=== PATIENT | male | born 1970 | race Caucasian/White ===

== ENCOUNTER 2023-11-21 14:38 | Emergency (ER) | payer OTHER ==
[~2023-11-21] VITALS: Ht 175.3 cm; Wt 71.2 kg
[2023-11-21 15:05] VITALS: BP 130/94; PULSE 107; RESP 16; TEMP 98.3; O2SAT 98
[2023-11-21 17:22] LABS: BASOPHILS % (AUTO) 0.5 % (0.0-2.0); EOSINOPHILS # (AUTO) 0.1 K/uL (0-0.4); EOSINOPHILS % (AUTO) 0.9 % (0.0-4.0); HEMATOCRIT 51.7 % (36-52); HEMOGLOBIN 17.7 g/dL (12.0-18.0); LYMPHOCYTES # (AUTO) 1.7 K/uL (2.0-11.5); MEAN CORPUSCULAR HEMOGLOBIN 31 pg (27-31); MEAN CORPUSCULAR HGB CONC 34 g/dL (33-37); MEAN CORPUSCULAR VOLUME 91.3 fL (80-94); MONOCYTES # (AUTO) 0.8 K/uL (0.8-1.0); MONOCYTES % (AUTO) 7.5 % (1.7-9.3); NEUTROPHILS # (AUTO) 7.8 K/uL (1.8-7.7); NEUTROPHILS % (AUTO) 75.1 % (42.2-75.2); PLATELET COUNT (AUTO) 316 K/uL (140-450); RED BLOOD CELL COUNT(AUTO) 5.67 MIL/uL (4.20-6.10); RED CELL DISTRIBUTION WIDTH 14.3 % (11.6-13.7); WHITE BLOOD COUNT (AUTO) 10.4 K/uL (4.8-10.8)
[2023-11-21 17:30] LABS: APPEARANCE,URINE CLEAR (CLEAR); BILIRUBIN,URINE 3+ (NEGATIVE); BLOOD, URINE NEGATIVE (NEGATIVE); COLOR,URINE ORANGE (YELLOW); LEUKOCYTE ESTERASE ,URINE TRACE (NEGATIVE); NITRITE, URINE POSITIVE (NEGATIVE); PROTEIN,URINE 2+ (NEGATIVE); UGLUCOSE TRACE (NEGATIVE)
[2023-11-21 17:33] LABS: ANION GAP 15.2 (8-16); CALCIUM 9.5 mg/dL (8.5-10.1); CREATININE 1.1 mg/dL (0.6-1.3); POTASSIUM 4.2 mmol/L (3.5-5.1)
[2023-11-21 17:47] LABS: ICTOTEST NEGATIVE (NEGATIVE)
[2023-11-21 17:48] LABS: ALBUMIN 4.7 g/dL (3.4-5.0); BACTERIA,URINE 10-30 (MOD) /HPF (None Seen); BILIRUBIN,DIRECT 0.3 mg/dL (0.0-0.3); RBC,URINE 0-5 /HPF (0-5); SQUAMOUS EPITHELIAL CELL,UR 0-3 (FEW) /LPF (0-3 (FEW)); THYROID STIMULATING HORMONE 0.73 uIU/mL (0.34-3.74); TOTAL BILIRUBIN 1.4 mg/dL (0.0-1.0); TOTAL PROTEIN, SERUM 8.6 g/dL (6.4-8.2); WBC,URINE 0-5 /HPF (0-5)
[2023-11-21 18:18] VITALS: O2SAT 97
[2023-11-21 18:19] VITALS: BP 114/88; PULSE 95; RESP 14; TEMP 98.3; O2SAT 97
[2023-11-21] MEDS ORDERED: CEFP200T20 PO (18:55)
[2023-11-21] MEDS ORDERED: ONDA-188 PO (18:55)
== END 2023-11-21 19:07 | disposition home or self-care (01) ==
LOC: MED 14:38
DX: N39.0 Urinary tract infection, site not specified (principal); I10 Essential (primary) hypertension; F41.9 Anxiety disorder, unspecified; K21.9 Gastro-esophageal reflux disease without esophagitis; E78.5 Hyperlipidemia, unspecified; Z79.1 Long term (current) use of non-steroidal anti-inflammatories (NSAID); Z79.899 Other long term (current) drug therapy
CPT/HCPCS: 36415; 71045; 80048; 80076; 81001; 83690; 84443; 85025; 99284

== ENCOUNTER 2023-11-29 00:20 | Inpatient (IN) | payer OTHER ==
[~2023-11-29] VITALS: Ht 172.7 cm; Wt 68.0 kg
[~2023-11-29 00:20] MED LIST: CEFP200T20 PO; ONDA-188 PO
[2023-11-29 00:24] VITALS: BP 146/100; PULSE 111; RESP 18; TEMP 102.1; O2SAT 97
[2023-11-29 00:31] VITALS: O2SAT 98
[2023-11-29] MEDS ORDERED: ONDANSETRON 4 MG/2 ML VIAL ONE (00:34)
[2023-11-29] MEDS ORDERED: ACETAMINOPHEN EXTRA STRENGTH 500 MG TAB ONE (00:34)
[2023-11-29] MEDS: ONDANSETRON 4 MG/2 ML VIAL IVP ONE (00:52)
[2023-11-29] MEDS: ACETAMINOPHEN EXTRA STRENGTH 500 MG TAB PO ONE (00:52)
[2023-11-29 00:59] LABS: BASOPHILS % (AUTO) 0.2 % (0.0-2.0); HEMATOCRIT 44.7 % (36-52); HEMOGLOBIN 15.5 g/dL (12.0-18.0); LYMPHOCYTES # (AUTO) 0.7 K/uL (2.0-11.5); LYMPHOCYTES % (AUTO) 4.1 % (20.5-51.1); MEAN CORPUSCULAR HEMOGLOBIN 32 pg (27-31); MEAN CORPUSCULAR HGB CONC 35 g/dL (33-37); MEAN CORPUSCULAR VOLUME 91.7 fL (80-94); MONOCYTES # (AUTO) 0.8 K/uL (0.8-1.0); MONOCYTES % (AUTO) 4.7 % (1.7-9.3); NEUTROPHILS # (AUTO) 16.4 K/uL (1.8-7.7); PLATELET COUNT (AUTO) 267 K/uL (140-450); RED BLOOD CELL COUNT(AUTO) 4.87 MIL/uL (4.20-6.10)
[2023-11-29] MEDS: NACL 0.9% 1,000 ML IV ONE ×2 (00:59→05:02)
[2023-11-29 01:21] LABS: ALBUMIN 4.4 g/dL (3.4-5.0); ANION GAP 15.3 (8-16); CALCIUM 8.3 mg/dL (8.5-10.1); CARBON DIOXIDE 24.2 mmol/L (21-32); CREATININE 1.3 mg/dL (0.6-1.3); POTASSIUM 3.5 mmol/L (3.5-5.1); TOTAL BILIRUBIN 0.8 mg/dL (0.0-1.0); TOTAL PROTEIN, SERUM 7.9 g/dL (6.4-8.2)
[2023-11-29 02:21] LABS: LACTIC ACID 1.1 mmol/L (0.4-2.0)
[2023-11-29 02:22] LABS: FLU A ANTIGEN negative (NEGATIVE); FLU B ANTIGEN NEGATIVE (NEGATIVE)
[2023-11-29 03:37] LABS: APPEARANCE,URINE CLEAR (CLEAR); COLOR,URINE YELLOW (YELLOW)
[2023-11-29 03:38] LABS: BLOOD, URINE NEGATIVE (NEGATIVE); PROTEIN,URINE TRACE (NEGATIVE); UGLUCOSE NEGATIVE (NEGATIVE)
[2023-11-29 03:39] LABS: BILIRUBIN,URINE NEGATIVE (NEGATIVE); LEUKOCYTE ESTERASE ,URINE NEGATIVE (NEGATIVE); NITRITE, URINE NEGATIVE (NEGATIVE); UROBILINOGEN,URINE 0.2 EU/dL (0.2 - 1)
[2023-11-29] MEDS ORDERED: CEFP200T20 PO (03:56)
[2023-11-29] MEDS ORDERED: SIMV-372 PO (03:56)
[2023-11-29] MEDS ORDERED: HYDR-1093 PO (03:56)
[2023-11-29] MEDS ORDERED: ONDA-188 SL (03:56)
[2023-11-29] MEDS ORDERED: OMEP20EC11 PO (03:56)
[2023-11-29] MEDS ORDERED: LOSA-272 PO (03:56)
[2023-11-29] MEDS: CIPROFLOXACIN 400 MG/200ML-D5W 200 ML IV ONE (04:04)
[2023-11-29] MEDS: MORPHINE SULFATE 4 MG/ML SYR IVP ONE (04:06)
[2023-11-29] MEDS: metroNIDAZOLE 500 MG/NS PREMIX 100 ML IV ONE (04:10)
[2023-11-29] MEDS: LORazepam 1 MG TAB PO ONE (05:30)
[2023-11-29 06:37] VITALS: O2SAT 96
[2023-11-29] MEDS ORDERED: ONDANSETRON 4 MG/2 ML VIAL IVP PRN (06:45)
[2023-11-29] MEDS ORDERED: POTASSIUM CHLORIDE 10 MEQ TABER PO PRN (06:45)
[2023-11-29] MEDS ORDERED: HYDROcodone/APAP 5/325 MG 1 TAB TAB PO PRN (06:45)
[2023-11-29] MEDS ORDERED: MAGNESIUM OXIDE 400 MG TAB PO PRN (06:45)
[2023-11-29] MEDS ORDERED: KCL 20 MEQ IN 100 mL PREMIX 200 ML IV PRN (06:45)
[2023-11-29] MEDS: NACL 0.9% 1,000 ML IV SCH (08:58)
[2023-11-29] MEDS: ENOXAPARIN 40 MG/0.4 ML SYR SUBQ SCH (09:23)
[2023-11-29] MEDS ORDERED: PIPERACILLIN/TAZOBACTAM 3.375 GM VIAL IV ONE ×2 (12:06→18:44)
[2023-11-29] MEDS: PIPERACILLIN/TAZOBACTAM 3.375 GM in DEXTROSE 5% 50 ML IV SCH (12:23)
[2023-11-29 16:07] VITALS: O2SAT 94
[2023-11-29] MEDS: ACETAMINOPHEN 325 MG TAB PO PRN (17:46)
[2023-11-29 21:32] VITALS: BP 125/84; PULSE 75; RESP 18; TEMP 97.3; O2SAT 99
[2023-11-29] MEDS: PIPERACILLIN/TAZOBACTAM 3.375 GM VIAL IV ONE (23:49)
[2023-11-30 04:00] VITALS: BP 113/64; PULSE 72; RESP 18; TEMP 97.4; O2SAT 98
[2023-11-30] MEDS: PIPERACILLIN/TAZOBACTAM 3.375 GM VIAL IV ONE (05:42)
[2023-11-30 06:58] LABS: BASOPHILS % (AUTO) 0.2 % (0.0-2.0); EOSINOPHILS # (AUTO) 0.2 K/uL (0-0.4); EOSINOPHILS % (AUTO) 1.4 % (0.0-4.0); HEMATOCRIT 38.7 % (36-52); HEMOGLOBIN 13.2 g/dL (12.0-18.0); LYMPHOCYTES # (AUTO) 1.4 K/uL (2.0-11.5); LYMPHOCYTES % (AUTO) 11.2 % (20.5-51.1); MEAN CORPUSCULAR HEMOGLOBIN 31 pg (27-31); MEAN CORPUSCULAR HGB CONC 34 g/dL (33-37); MEAN CORPUSCULAR VOLUME 91.1 fL (80-94); MONOCYTES # (AUTO) 1.1 K/uL (0.8-1.0); MONOCYTES % (AUTO) 8.5 % (1.7-9.3); NEUTROPHILS # (AUTO) 9.7 K/uL (1.8-7.7); NEUTROPHILS % (AUTO) 78.7 % (42.2-75.2); PLATELET COUNT (AUTO) 232 K/uL (140-450); RED BLOOD CELL COUNT(AUTO) 4.25 MIL/uL (4.20-6.10); RED CELL DISTRIBUTION WIDTH 13.9 % (11.6-13.7); WHITE BLOOD COUNT (AUTO) 12.4 K/uL (4.8-10.8)
[2023-11-30 07:15] LABS: ANION GAP 10.2 (8-16); CALCIUM 8.3 mg/dL (8.5-10.1); CARBON DIOXIDE 28.1 mmol/L (21-32); POTASSIUM 4.3 mmol/L (3.5-5.1)
[2023-11-30 08:00] VITALS: BP 152/82; PULSE 66; RESP 18; TEMP 97; O2SAT 98
[2023-11-30] MEDS: MEDS-TO-BEDS MC SCH (08:50)
[2023-11-30 12:00] VITALS: BP 152/82; PULSE 66; RESP 18; TEMP 97; O2SAT 98
[2023-11-30] MEDS: MORPHINE SULFATE 4 MG/ML SYR IVP PRN (13:34)
[2023-11-30 15:34] VITALS: O2SAT 97
[2023-11-30 16:00] VITALS: BP 147/83; PULSE 82; RESP 20; TEMP 97; O2SAT 97
[2023-11-30 20:00] VITALS: BP 104/69; PULSE 64; RESP 18; TEMP 98.3; O2SAT 96
[2023-12-01 04:00] VITALS: BP 134/79; PULSE 62; RESP 18; TEMP 97.8; O2SAT 96
[2023-12-01 07:04] LABS: ANION GAP 11.1 (8-16); BASOPHILS % (AUTO) 0.5 % (0.0-2.0); CALCIUM 7.9 mg/dL (8.5-10.1); CARBON DIOXIDE 29.4 mmol/L (21-32); CREATININE 0.9 mg/dL (0.6-1.3); EOSINOPHILS # (AUTO) 0.3 K/uL (0-0.4); HEMOGLOBIN 13.5 g/dL (12.0-18.0); LYMPHOCYTES # (AUTO) 1.7 K/uL (2.0-11.5); LYMPHOCYTES % (AUTO) 21.8 % (20.5-51.1); MEAN CORPUSCULAR HEMOGLOBIN 31 pg (27-31); MEAN CORPUSCULAR HGB CONC 35 g/dL (33-37); MEAN CORPUSCULAR VOLUME 90.5 fL (80-94); MONOCYTES # (AUTO) 0.7 K/uL (0.8-1.0); MONOCYTES % (AUTO) 9.2 % (1.7-9.3); NEUTROPHILS % (AUTO) 64.5 % (42.2-75.2); PLATELET COUNT (AUTO) 255 K/uL (140-450); POTASSIUM 3.5 mmol/L (3.5-5.1); RED BLOOD CELL COUNT(AUTO) 4.31 MIL/uL (4.20-6.10); RED CELL DISTRIBUTION WIDTH 13.9 % (11.6-13.7); WHITE BLOOD COUNT (AUTO) 7.8 K/uL (4.8-10.8)
[2023-12-01 08:00] VITALS: BP 109/70; PULSE 70; RESP 18; TEMP 98.3; TEMP 98.7; O2SAT 96
[2023-12-01] MEDS ORDERED: CIPR500T4 PO (15:47)
[2023-12-01] MEDS ORDERED: LACT1CAP81 PO (15:47)
[2023-12-01] MEDS ORDERED: METR-520 PO (15:47)
[2023-12-01 15:54] VITALS: BP 110/69; PULSE 75; RESP 19; TEMP 97.9
[2023-12-01 16:00] VITALS: BP 128/74; PULSE 69; RESP 18; TEMP 97.9; O2SAT 96
[2023-12-01 16:51] VITALS: O2SAT 97
== END 2023-12-01 18:30 | disposition home or self-care (01) | DRG 720 ==
LOC: MED 00:20 → MMU 06:46 → MTU 20:50
PROVIDERS: ADMIT Hospitalist; ATTEND Hospitalist
DX: A41.9 Sepsis, unspecified organism (principal); E83.51 Hypocalcemia; E87.1 Hypo-osmolality and hyponatremia; A08.4 Viral intestinal infection, unspecified; E78.5 Hyperlipidemia, unspecified; I10 Essential (primary) hypertension; Z20.822 Contact with and (suspected) exposure to COVID-19; E86.0 Dehydration; E86.1 Hypovolemia; N39.0 Urinary tract infection, site not specified; Z79.899 Other long term (current) drug therapy
CPT/HCPCS: 36415; 80048; 80053; 81003; 83605; 83735; 85025; 87040; 87070; 87081; 96361; 96365; 96375; 99291; J0744; J1650; J2270; J2405; J2543; J3490; J7060

== ENCOUNTER 2024-03-09 14:38 | Emergency (ER) | payer OTHER ==
[~2024-03-09] VITALS: Ht 175.3 cm; Wt 75.5 kg
[~2024-03-09 14:38] MED LIST changes: -CEFP200T20 PO; +CIPR500T4 PO; +HYDR-1093 PO; +LACT1CAP81 PO; +LOSA-272 PO; +METR-520 PO; +OMEP20EC11 PO; +SIMV-372 PO
[2024-03-09 14:47] VITALS: BP 145/94; PULSE 75; RESP 16; TEMP 98.3; O2SAT 96
[2024-03-09 15:08] VITALS: TEMP 98.3
[2024-03-09] MEDS: ONDANSETRON 4 MG ODT PO ONE (15:14)
[2024-03-09 15:27] LABS: BASOPHILS # (AUTO) 0.1 K/uL (0.00-0.22); BASOPHILS % (AUTO) 1.2 % (0.0-2.0); EOSINOPHILS # (AUTO) 0.3 K/uL (0-0.4); EOSINOPHILS % (AUTO) 4.8 % (0.0-4.0); HEMOGLOBIN 14.3 g/dL (12.0-18.0); LYMPHOCYTES # (AUTO) 2.3 K/uL (2.0-11.5); LYMPHOCYTES % (AUTO) 32.6 % (20.5-51.1); MEAN CORPUSCULAR HEMOGLOBIN 32 pg (27-31); MEAN CORPUSCULAR HGB CONC 34 g/dL (33-37); MONOCYTES # (AUTO) 0.5 K/uL (0.8-1.0); MONOCYTES % (AUTO) 7.1 % (1.7-9.3); NEUTROPHILS # (AUTO) 3.8 K/uL (1.8-7.7); NEUTROPHILS % (AUTO) 54.3 % (42.2-75.2); PLATELET COUNT (AUTO) 251 K/uL (140-450); RED BLOOD CELL COUNT(AUTO) 4.52 MIL/uL (4.20-6.10); RED CELL DISTRIBUTION WIDTH 13.8 % (11.6-13.7); WHITE BLOOD COUNT (AUTO) 6.9 K/uL (4.8-10.8)
[2024-03-09 15:31] LABS: APPEARANCE,URINE CLEAR (CLEAR); BILIRUBIN,URINE NEGATIVE (NEGATIVE); BLOOD, URINE NEGATIVE (NEGATIVE); COLOR,URINE YELLOW (YELLOW); LEUKOCYTE ESTERASE ,URINE NEGATIVE (NEGATIVE); NITRITE, URINE NEGATIVE (NEGATIVE); PROTEIN,URINE NEGATIVE (NEGATIVE); UGLUCOSE NEGATIVE (NEGATIVE); UROBILINOGEN,URINE 0.2 EU/dL (0.2 - 1)
[2024-03-09 15:46] LABS: ANION GAP 9.7 (8-16); CALCIUM 8.4 mg/dL (8.5-10.1); CARBON DIOXIDE 29.9 mmol/L (21-32); CREATININE 0.9 mg/dL (0.6-1.3); POTASSIUM 3.6 mmol/L (3.5-5.1)
[2024-03-09 15:53] LABS: BILIRUBIN,DIRECT 0.1 mg/dL (0.0-0.3); TOTAL BILIRUBIN 0.4 mg/dL (0.0-1.0); TOTAL PROTEIN, SERUM 7.2 g/dL (6.4-8.2)
[2024-03-09 15:57] LABS: FLU A ANTIGEN negative (NEGATIVE); FLU B ANTIGEN NEGATIVE (NEGATIVE)
[2024-03-09 16:24] VITALS: BP 139/89; PULSE 78; RESP 14; O2SAT 99
== END 2024-03-09 16:24 | disposition home or self-care (01) ==
LOC: MED 14:38
DX: B34.9 Viral infection, unspecified (principal); Z20.822 Contact with and (suspected) exposure to COVID-19; I10 Essential (primary) hypertension; Z98.890 Other specified postprocedural states; Z79.899 Other long term (current) drug therapy
CPT/HCPCS: 36415; 80048; 80076; 81003; 85025; 87426; 87804; 99283; Q0162